=== PATIENT | female | born 1985 | race Caucasian/White ===

== ENCOUNTER 2021-04-28 16:34 | Outpatient (RCR) | payer OTHER, SELFPAY ==
[2021-04-29] MEDS: RHO(D) IMMUNE GLOBULIN 300 MCG/2 ML SYRINGE IM (13:12)
== END 2021-07-27 23:59 | disposition home or self-care (01) ==
LOC: ANHLAB 16:34
PROVIDERS: Visit Provider Advanced Practice Midwife
DX: Z29.13 Encounter for prophylactic Rho(D) immune globulin (principal); O36.0130 Maternal care for anti-D [Rh] antibodies, third trimester, not applicable or unspecified; Z3A.00 Weeks of gestation of pregnancy not specified
CPT/HCPCS: 36415; 85461; 90384; 96372; J2790

== ENCOUNTER → 2022-05-25 12:48 | Outpatient (CLI) | payer OTHER, SELFPAY ==
--- NOTE | ~2022-05-25 | US_ITS ---
EXAMINATION: US thyroid DATE: 05/25/2022 13:50 INDICATION: Nontoxic single thyroid nodule. TECHNIQUE: Multiple ultrasound images of the thyroid were obtained. COMPARISON: Ultrasound 07/05/2019 FINDINGS: The right thyroid lobe measures 4.4 x 1.2 x 1.3 cm. The left thyroid lobe measures 3.6 x 0.8 x 1.2 c m. In the right thyroid lobe, there is a 2 mm nodule. In the left thyroid lobe, there is a 6 mm faustino d, hypoechoic, wider than tall nodule with ill-defined margin without echogenic foci (TI-RADS TR4). IMPRESSION: 1. Small thyroid nodules, likely not clinically significant. No follow-up is needed. Reviewed, dictated and finalized at location A. IMPRESSION: 1. Small thyroid nodules, likely not clinically significant. No follow-up is ne eded.
== END ==
PROVIDERS: PCP Nurse Practitioner Family; Visit Provider Nurse Practitioner Family
DX: E04.2 Nontoxic multinodular goiter (principal)
CPT/HCPCS: 76536